=== PATIENT | female | born 1985 | race Caucasian/White ===

== ENCOUNTER 2022-10-04 11:30 | Emergency (ER) | payer OTHER, SELFPAY ==
--- NOTE | ~2022-10-04 | XR_ITS ---
EXAMINATION: XR CHEST CLINICAL INFORMATION: Shortness of breath COMPARISON: Previous chest x-ray October 2019 TECHNIQUE: Frontal view of the chest was obtained. FINDINGS: No significant abnormality is noted involving the heart, lungs, mediastinum, bony thorax or soft tissues. XR/XR chest 1V IMPRESSION: Unremarkable examination.
[2022-10-04 11:32] VITALS: BP 159/95; PULSE 116; RESP 22; TEMP 36.6; O2SAT 95; BMI 27.4
[2022-10-04 11:42] VITALS: BP 129/92; PULSE 113; RESP 20; TEMP 37.1; O2SAT 92
--- NOTE | 2022-10-04 11:45 | PC.NURSE ---
PT A&Ox4, c/o increasing SOB since yesterday. PT wheezing to occultation, sat 94% on RA. RR 20.
[2022-10-04 11:55] LABS: MANUAL DIFF FLAG NO
[2022-10-04 12:03] LABS: Basophils Absolute Auto 0.1 X10*3/uL (0.0-0.2); Basophils Percent Auto 0.8 % (0-2); Eosinophils Absolute Auto 0.4 X10*3/uL (0.0-0.4); Eosinophils Percent Auto 4.7 % (0-4); Hematocrit 42.9 % (37.0-47.0); Hemoglobin 14.8 g/dl (12.0-16.0); Imm Gran Abs Auto 0.04 X10*3/uL (0.00-0.03); Imm Gran Pct Auto 0.5 % (0.0-0.4); Lymphocytes Absolute Auto 1.5 X10*3/uL (1.2-4.9); Lymphocytes Percent Auto 16.9 % (20-40); Mean Corpuscular HGB Conc 34.5 g/dl (31.0-35.0); Mean Corpuscular Hemoglobin 30.8 pg (27.0-33.0); Mean Corpuscular Volume 89.2 fL (80.0-98.0); Mean Platelet Volume 10.2 fL (9.4-12.3); Monocytes Absolute Auto 0.8 X10*3/uL (0.1-1.2); Monocytes Percent Auto 8.5 % (2-11); Neutrophils Absolute Auto 6.1 x10*3/uL (2.0-8.3); Neutrophils Percent Auto 68.6 % (45-73); Platelet Count 342 X10*3/uL (160-400); Red Blood Count 4.81 X10*6/uL (4.20-5.50); Red Cell Distribution Width 12.2 % (11.0-16.0); White Blood Count 8.9 X10*3/uL (4.8-10.8)
--- NOTE | 2022-10-04 12:10 | ED.SOB ---
HPI - SOB/Dyspnea General Chief Complaint: Dyspnea Stated Complaint: Difficulty breathing/Chest pain Time Seen by Provider: 10/04/22 12:08 Related Data Previous Rx's Medication Instructions Recorded albuterol sulfate 2.5 mg/3 mL 2.5 mg (3 mL) inhalation Q4H PRN 10/04/22 (0.083 %) solution for nebulization shortness of breath or wheezing #180 mL albuterol sulfate 90 mcg/actuation 2 puff inhalation Q4-6H PRN 10/04/22 aerosol inhaler shortness of breath #6.7 grams inhalational spacing device #1 ea 10/04/22 (Aerochamber Plus Z Stat spacer) prednisone 20 mg tablet 40 mg PO DAILY #14 tabs 10/04/22 Allergies Allergy/AdvReac Type Severity Reaction Status Date / Time No Known Allergies Allergy Unverified 07/30/20 16:51 [No Known Allergies*] PMFSH Social History Social History Advance Directives: No Advance Directives Information Provided: No Physical Exam Vital Signs: Vital Signs: Last Vital Signs Temp 98.8 F 10/04/22 11:42 Pulse 105 H 10/04/22 13:47 Resp 19 10/04/22 13:47 BP 121/75 10/04/22 13:47 Pulse Ox 97 10/04/22 13:47 O2 Del Method 10/04/22 13:47 BMI result Body Mass Index 27.4 Course Reevaluation(s) Reevaluation #1: Patient states breathing is improved, but still slightly wheezy. Will give another neb and re-evaluate. Time: 13:39 Reevaluation #2: Patient is feeling much improved. Would like to go home at this time. Time: 14:52 Medications Administered Discontinued Medications Generic Name Dose Route Start Last Admin Trade Name Freq PRN Reason Stop Dose Admin Albuterol Sulfate 2.5 mg/ 5 mg 10/04/22 13:38 10/04/22 13:47 Albuterol Sulfate 2.5 mg INHALE 10/04/22 13:39 5 mg ONCE ONE Administration Albuterol/Ipratropium 3 ml 10/04/22 12:17 10/04/22 12:58 Albuterol/Iprat 2.5/0.5mg 3 Ml Ampul.Neb INHALE 10/04/22 12:18 3 ml ONCE ONE Administration Methylprednisolone Sodium Succinate 125 mg 10/04/22 12:30 10/04/22 12:32 Methylprednisolone Sod Succ 125 Mg/2 Ml Vial IVPUSH 10/04/22 12:31 125 mg ONCE ONE Administration MDM - SOB/Dyspnea MDM Narrative Medical decision making narrative: 37 yo with hx of asthma presents with shortness of breath. XRay and labs unremarkable for abnormalities. Rec'd several nebulizer treatments with improvement. Will d/c home on steroids with prescriptions. Differential Diagnosis Differential diagnosis: Likely acute exacerbation of chronic obstructive airways disease, pneumonia and asthma with exacerbation Medical Records Attestation: I reviewed the patient's medical records. Lab Data Attestation: I reviewed the patient's lab results. Result diagrams: 10/04/22 11:50 10/04/22 11:50 Labs: Lab Results 10/04/22 10/04/22 10/04/22 Range/Units 11:50 11:50 11:50 WBC 8.9 (4.8-10.8) X10*3/uL RBC 4.81 (4.20-5.50) X10*6/uL Hgb 14.8 (12.0-16.0) g/dl Hct 42.9 (37.0-47.0) % MCV 89.2 (80.0-98.0) fL MCH 30.8 (27.0-33.0) pg MCHC 34.5 (31.0-35.0) g/dl RDW 12.2 (11.0-16.0) % Plt Count 342 (160-400) X10*3/uL MPV 10.2 (9.4-12.3) fL Immature Gran % (Auto) 0.5 H (0.0-0.4) % Neut % (Auto) 68.6 (45-73) % Lymph % (Auto) 16.9 L (20-40) % [place] % (Auto) 8.5 (2-11) % Eos % (Auto) 4.7 H (0-4) % Baso % (Auto) 0.8 (0-2) % Lymph # (Auto) 1.5 (1.2-4.9) X10*3/uL [place] # (Auto) 0.8 (0.1-1.2) X10*3/uL Eos # (Auto) 0.4 (0.0-0.4) X10*3/uL Baso # (Auto) 0.1 (0.0-0.2) X10*3/uL Abs Immat Gran (auto) 0.04 H (0.00-0.03) X10*3/uL Absolute Neuts (auto) 6.1 (2.0-8.3) x10*3/uL Absolute Nucleated RBC 0.000 (0.0-0.012) X10*3/uL Nucleated RBC % (auto) 0.0 (0.0-0.2) /100WBC Sodium 140 (135-145) mmol/L Potassium 4.7 (3.3-5.1) mmol/L Chloride 106 (96-108) mmol/L Carbon Dioxide 23 (22-29) mmol/L Anion Gap 16 (12-20) BUN 10 (9-16) mg/dL Creatinine 0.78 (0.5-1.4) mg/dL Estim Creat Clear Calc 95.5 Estimated GFR > 60 Random Glucose 110 (60-115) mg/dL Calcium 9.8 (8.4-10.2) mg/dL Troponin I High Sens < 3.5 (<3.5-17.0) ng/L B-Natriuretic Peptide (<100) pg/mL 10/04/22 Range/Units 11:50 WBC (4.8-10.8) X10*3/uL RBC (4.20-5.50) X10*6/uL Hgb (12.0-16.0) g/dl Hct (37.0-47.0) % MCV (80.0-98.0) fL MCH (27.0-33.0) pg MCHC (31.0-35.0) g/dl RDW (11.0-16.0) % Plt Count (160-400) X10*3/uL MPV (9.4-12.3) fL Immature Gran % (Auto) (0.0-0.4) % Neut % (Auto) (45-73) % Lymph % (Auto) (20-40) % [place] % (Auto) (2-11) % Eos % (Auto) (0-4) % Baso % (Auto) (0-2) % Lymph # (Auto) (1.2-4.9) X10*3/uL [place] # (Auto) (0.1-1.2) X10*3/uL Eos # (Auto) (0.0-0.4) X10*3/uL Baso # (Auto) (0.0-0.2) X10*3/uL Abs Immat Gran (auto) (0.00-0.03) X10*3/uL Absolute Neuts (auto) (2.0-8.3) x10*3/uL Absolute Nucleated RBC (0.0-0.012) X10*3/uL Nucleated RBC % (auto) (0.0-0.2) /100WBC Sodium (135-145) mmol/L Potassium (3.3-5.1) mmol/L Chloride (96-108) mmol/L Carbon Dioxide (22-29) mmol/L Anion Gap (12-20) BUN (9-16) mg/dL Creatinine (0.5-1.4) mg/dL Estim Creat Clear Calc Estimated GFR Random Glucose (60-115) mg/dL Calcium (8.4-10.2) mg/dL Troponin I High Sens (<3.5-17.0) ng/L B-Natriuretic Peptide 11 (<100) pg/mL Imaging Data Chest x-ray: Attestation: I personally reviewed and interpreted this imaging study as follows: My impression: No acute pulmonary disease. No pneumothorax. No pneumonia. Discharge Plan Discharge Clinical Impression: Asthma with exacerbation Patient Disposition: Home, Self-Care Instructions: Asthma (ED), How to Use a Metered-Dose Inhaler and a Spacer (ED) Prescriptions: New albuterol sulfate 90 mcg/actuation HFA aerosol inhaler 2 puff inhalation Q4-6H PRN (Reason: shortness of breath) Qty: 6.7 0RF albuterol sulfate 2.5 mg /3 mL (0.083 %) solution for nebulization 2.5 mg inhalation Q4H PRN (Reason: shortness of breath or wheezing) Qty: 180 0RF prednisone 20 mg tablet 40 mg PO DAILY Qty: 14 0RF (DME) Aerochamber Plus Z Stat Spacer See Rx Instructions .Route Qty: 1 0RF Rx Instructions: As directed Referrals: Aaron Mercer MD [Primary Care Provider] - 1 week (as needed)
[2022-10-04 12:17] LABS: Anion Gap 16 (12-20); Blood Urea Nitrogen 10 mg/dL (9-16); Calcium 9.8 mg/dL (8.4-10.2); Carbon Dioxide 23 mmol/L (22-29); Chloride 106 mmol/L (96-108); Creatinine Clr Calc Pharmacy 95.5; Estimated Glomerular Filt Rate > 60; Glucose Random 110 mg/dL (60-115); Potassium 4.7 mmol/L (3.3-5.1); Sodium 140 mmol/L (135-145)
[2022-10-04 12:25] LABS: B Type Natriuretic Peptide 11 pg/mL (<100); Troponin-I High Sensitivity < 3.5 ng/L (<3.5-17.0)
--- OUTSIDE RECORDS SUMMARY | 2022-10-04 12:25 | XMS_ITS | Continuity of Care Document ---
:1985 Author Organization [facility] Adult Address [address] [place] [address]- Care Team Providers Name Role Phone Aaron Mercer MD Primary Care Physician [place] [facility] [place]19 [facility] [address] [place] [address]- [facility] Encounter Diagnosis Cough (Discharge Diagnosis) - 11/28/19 Attending Physician: Not on Staff, Attending MD Allergies, Adverse Reactions, Alerts No Known Medication Allergies Immunizations Given and Recorded Vaccine Date Status Refusal Reason tetanus-diphtheria toxoids (Td) 11/28/19 Given Medications Azithromycin 5 Day Dose Pack 250 mg oral tablet 1 pack/packet, By Mouth, Once, as directed on package labeling, # 6 tablet, 0 Refills, Soft Stop, 11/28/19 10:28:00 EST, Tablet, [facility] - [address], 162, cm, 11/28/19 10:01:00 EST, Height, 70.1, kg, 01/12/18 18:04:00 EST, Dry Weight Start Date: 11/28/19 Status: Orderedlevothyroxine 0.025 mg oral tablet 1 tablet = 25 mcg, By Mouth, Daily, # 30 tablet, 1 Refills, Maintenance, 11/29/19 10:56:00 EST, Tablet, [facility] - [address], 162, cm, 11/28/19 10:01:00 EST, Height, 70.1, kg, 01/12/18 18:04:00 EST, Dry Weight Start Date: 11/29/19 Status: OrderedProAir HFA 90 mcg/inh inhalation aerosol with adapter 2, puffs, Inhalation, Every 6 hours, PRN, # 8.5 Gm, Refills 0, Tot. Refills 0, Maintenance, 11/28/2009:18:00 EST, Aerosol, Route to Pharmacy Electronically, [id number], [facility] - [address],162, cm, 11/28/19 10:01:00 EST, Height, 70.1, kg,... Start Date: 11/28/19 Status: OrderedSingulair 10 mg oral tablet 10 mg, 1, tablet, By Mouth, Daily in PM, # 30 tablet, Refills 6, Tot. Refills 6, Maintenance, 11/28/19 10:18:00 EST, Route to Pharmacy Electronically, [facility] - [address], 162, cm, 11/28/19 10:01:00 EST, Height, 70.1, kg, 01/12/18 18:04:00 EST, D... Start Date: 11/28/19 Status: Ordered Problem List Condition Effective Dates Status Health Status Informant Asthma(Confirmed) Active BMI 28.0-28.9,adult(Confirmed) Active GERD (gastroesophageal reflux Active disease)(Confirmed) History of anxiety(Confirmed) Active History of depression(Confirmed) Active Hypothyroid(Confirmed) Active Vitamin D deficiency(Confirmed) Active Diagnosis Diagnosis Type Effective Dates Health Status Clinical Serv ice Informant Cough Discharge 11/28/19 Diagnosis Vital Signs Most recent to oldest [Reference Range]: 1 Height 162 cm (11/28/19 10:01 AM) Weight 74.6 kg (11/28/19 10:01 AM) Oxygen Saturation [94-100 %] 97 % (11/28/19 10:01 AM) Pulse Rate [55-90 bpm] 83 bpm (11/28/19 10:01 AM) Body Mass Index [18.5-24.99] 28.43 *H* (11/28/19 10:01 AM) Blood Pressure [90-138/55-84 mm Hg] 124/84 mm Hg (11/28/19 10:01 AM) Temperature [96.8-100.4 DegF] 98.1 DegF (11/28/19 10:01 AM) Blood pressure sites Arm, left (11/28/19 10:01 AM) Temperature Route Oral (11/28/19 10:01 AM) Social History Social History Type Response Smoking Status Former smoker, quit more jesus n 30 days ago; Other: Quit 3 months ago; entered on: 11/28/19 Sex
--- OUTSIDE RECORDS SUMMARY | 2022-10-04 12:25 | XMS_ITS | Continuity of Care Document ---
:1985 Author Organization [facility] Adult Address [address] [place] [address]- Care Team Providers Name Role Phone Sylvie OROSCO, Aaron Lopez Primary Care Physician Encounter [facility] [place] Date(s): 08/17/20 - 09/16/20 [facility] [address] [place] [id number]- [facility] Allergies, Adverse Reactions, Alerts No Known Medication Allergies Substance Reaction Severity Status Glutens Active Milk Products Active Immunizations Given and Recorded Vaccine Date Status Refusal Reason tetanus-diphtheria toxoids (Td) 11/28/19 Given Medications AirDuo RespiClick 113 mcg-14 mcg/inh inhalation powder 1, inhalation, Inhalation, 2 times a day, rinse mouth and throat after use, # 1 each, Refills 3, Tot. Refills 3, Maintenance, 07/03/20 16:40:00 EDT, Powder, Route to Pharmacy Electronically, [id number], [facility] #[id number], 162, cm, 03/13... Start Date: 07/03/20 Status: Orderedalbuterol 0.083% inhalation solution 3 mL = 2.5 mg, Inhalation, Every 6 hours, PRN for wheezing, # 25 each, 2 Refills, Maintenance, 06/25/20 15:43:00 EDT, Solution, [facility] #[id number], 162, cm, 03/30/20 9:29:00 EDT, Height Start Date: 06/25/20 Status: OrderedFlonase 50 mcg/inh nasal spray 1 sprays, Nares, Both, 2 times a day, # 16 Gm, 0 Refills, Maintenance, 03/30/20 9:48:00 EDT, [place], [facility] #[id number], 1 sprays Nares, Both 2 times a day, 162, cm, 03/30/20 9:29:00 EDT, Height Start Date: 03/30/20 Status: OrderedFlovent HFA 220 mcg/inh inhalation aerosol 2 puffs, Inhalation, 2 times a day, # 12 Gm, 5 Refills, Maintenance, 08/20/20 10:59:00 EDT, Aerosol,[facility] #[id number], 162, cm, 03/30/20 9:29:00 EDT, Height Start Date: 08/20/20 Status: Orderedlevothyroxine 0.05 mg oral tablet 1 tablet = 50 mcg, By Mouth, Daily, DOSAGE INCREASE, # 30 tablet, 1 Refills, Maintenance, 02/27/20 9:46:00 EDT, Tablet, [facility] #[id number], 162, cm, 11/28/19 10:01:00 EST, Height Start Date: 02/27/20 Status: OrderedpredniSONE 20 mg oral tablet See Instructions, 2 tablets daily for 7 days then 1 tablet daily for 7 days, # 21 tablet, 0 Refills,Maintenance, 06/25/20 15:39:00 EDT, Tablet, [facility] #[id number], 162, cm, 03/30/20 9:29:00 EDT, Height Start Date: 06/25/20 Status: OrderedProAir HFA 90 mcg/inh inhalation aerosol with adapter 2, puffs, Inhalation, Every 6 hours, PRN, # 8.5 Gm, Refills 5, Tot. Refills 5, Maintenance, 06/25/2015:43:00 EDT, Aerosol, Route to Pharmacy Electronically, [id number], [facility] #[id number], 162, cm, 03/30/20 9:29:00 EDT, Height, Dry Weight Start Date: 06/25/20 Status: OrderedSingulair 10 mg oral tablet 10 mg, 1, tablet, By Mouth, Daily in PM, # 30 tablet, Refills 6, Tot. Refills 6, Maintenance, 11/28/19 10:18:00 EST, Route to Pharmacy Electronically, [facility] - [address], 162, cm, 11/28/19 10:01:00 EST, Height, 70.1, kg, 01/12/18 18:04:00 EST, D... Start Date: 11/28/19 Status: Ordered Problem List Condition Effective Dates Status Health Status Informant Asthma(Confirmed) Active BMI 28.0-28.9,adult(Confirmed) Active GERD (gastroesophageal reflux Active disease)(Confirmed) History of anxiety(Confirmed) Active History of depression(Confirmed) Active Hypothyroid(Confirmed) Active Vitamin D deficiency(Confirmed) Active Social History Social History Type Response Smoking Status Former smoker, quit more jesus n 30 days ago; Other: Quit 3 months ago; entered on: 11/28/19 Sex
--- OUTSIDE RECORDS SUMMARY | 2022-10-04 12:25 | XMS_ITS | Continuity of Care Document ---
:1985 Author Organization [facility] Adult Address [address] [place] [address]- Care Team Providers Name Role Phone Sylvie OROSCO, Aaron Lopez Primary Care Physician [place] [facility] [place] 11/26/20 - 12/26/20 [facility] [address] [place] [address]- Allergies, Adverse Reactions, Alerts No Known Medication Allergies Substance Reaction Severity Status Glutens Active Milk Products Active Immunizations Given and Recorded Vaccine Date Status Refusal Reason tetanus-diphtheria toxoids (Td) 11/28/19 Given Medications albuterol 0.083% inhalation solution 3 mL = 2.5 mg, Inhalation, Every 6 hours, PRN for wheezing, # 100 each, 2 Refills, Maintenance, 11/25/20 13:41:00 EST, Solution, [id number], 162, cm, 10/20/20 8:08:00 EST, Height Start Date: 11/25/20 Status: Orderedfluticasone-salmeterol 232 mcg-14 mcg/inh inhalation powder 1 inhalation, Inhalation, 2 times a day, rinse mouth and throat after use, # 1 each, 3 Refills, Maintenance, 11/25/20 13:41:00 EST, Powder, [id number], Partial fill upon patient request if the prescription is for a schedule II opioid drug., 1... Start Date: 11/25/20 Status: Orderedlevothyroxine 0.025 mg oral tablet 1 tablet, By Mouth, Daily, PLEASE SCHEDULE A FOLLOW UP VISIT FOR FURTHER REFILLS., # 30 tablet, 0 Refills, Maintenance, 11/25/20 13:41:00 EST, [id number], 162, cm, 10/20/20 8:08:00 EST, Height Start Date: 11/25/20 Status: OrderedSingulair 10 mg oral tablet 10 mg, 1, tablet, By Mouth, Daily in PM, # 30 tablet, Refills 6, Tot. Refills 6, Maintenance, 11/25/20 13:41:00 EST, [id number], cm, 10/20/20 8:08:00 EST,Height Start Date: 11/25/20 Status: OrderedVentolin HFA 108 mcg/inh inhalation aerosol with adapter 2 puffs, Inhalation, 4 times a day, PRN for wheezing, replaces pro air, # 18 Gm, 3 Refills, Maintenance, 11/26/20 9:42:00 EST, Aerosol, [facility] #[id number], Partial fill upon patient request if the prescription is for a schedule II opioid drug. replace... Start Date: 11/26/20 Status: Ordered Problem List Condition Effective Dates [...]
[2022-10-04] MEDS: methylPREDNISolone Sod Succ 125 MG/2 ML VIAL IVPUSH (12:32)
--- NOTE | 2022-10-04 12:50 | PC.NURSE ---
respiratory called for updraft
[2022-10-04] MEDS: Albuterol/Iprat 2.5/0.5MG 3 ML AMPUL.NEB INHALE (12:58)
[2022-10-04 12:59] VITALS: PULSE 112; RESP 18; O2SAT 94
[2022-10-04 13:47] VITALS: BP 121/75; PULSE 105; PULSE 112; RESP 19; RESP 20; O2SAT 97; O2SAT 98
[2022-10-04] MEDS: Albuterol Sulfate 2.5 MG, Albuterol Sulfate (0.083%) 2.5 MG 5 MG INHALE (13:47)
--- NOTE | 2022-10-04 14:21 | PC.NURSE ---
pt had second updraft, LEX and LLL in/ex wheezing heard, diminished throughout. pt given po with provider ok.
== END 2022-10-04 15:12 | disposition home or self-care (01) ==
PROVIDERS: Emergency Provider Emergency Medicine; PCP Internal Medicine
DX: J45.901 Unspecified asthma with (acute) exacerbation (principal); R06.02 Shortness of breath; Z79.899 Other long term (current) drug therapy
CPT/HCPCS: 36415; 71045; 80048; 83880; 84484; 85025; 94640; 96374; 99284; J2930

== ENCOUNTER 2024-09-16 17:09 | Emergency (ER) | payer OTHER, SELFPAY ==
--- NOTE | ~2024-09-16 | XR_ITS ---
EXAMINATION: XR CHEST CLINICAL INFORMATION: Shortness of breath COMPARISON: 10/04/2022 TECHNIQUE: Frontal view of the chest was obtained. FINDINGS: No significant abnormality is noted involving the heart, lungs, mediastinum, bony thorax or soft tissues. XR/XR chest 1V IMPRESSION: Unremarkable examination. Electronically signed by: Anayeli Boo MD 09/16/2024 06:29 PM [facility]
[2024-09-16 17:18] VITALS: BP 162/97; PULSE 116; RESP 24; TEMP 36.4; O2SAT 86; BMI 25.7
[2024-09-16 17:24] VITALS: PULSE 116; RESP 25; O2SAT 95
--- NOTE | 2024-09-16 17:24 | ED_ITS ---
HPI - Asthma General Chief Complaint: Asthma Stated Complaint: Asthma Attack Time Seen by Provider: 09/16/24 17:21 Source: patient Mode of arrival: ambulatory Limitations: no limitations History of Present Illness ED Provider: Dr. Wendy Vazquez HPI Narrative: Patient comes to the emergency room complaining of 2-3 days of shortness of breath/asthma exacerbation. Patient states that couple of days ago, she started coughing. Patient denies fever chills. Patient has been using her albuterol both pump and nebulization treatments at home without any significant response. Patient denies any sick contacts. Related Data Previous Rx's ?Medication ?Instructions ?Recorded albuterol sulfate 2.5 mg/3 mL 2.5 mg (3 mL) inhalation Q4H PRN 10/04/22 (0.083 %) solution for nebulization shortness of breath or wheezing #180 mL albuterol sulfate 90 mcg/actuation 2 puff inhalation Q4-6H PRN 10/04/22 aerosol inhaler shortness of breath #6.7 grams inhalational spacing device #1 ea 10/04/22 (Aerochamber Plus Z Stat spacer) prednisone 20 mg tablet 40 mg (2 x 20 mg) PO DAILY #14 tabs 10/04/22 albuterol sulfate 2.5 mg/3 mL 2.5 mg (3 mL) inhalation Q4-6H PRN 09/16/24 (0.083 %) solution for nebulization shortness of breath or wheezing #75 mL albuterol sulfate 90 mcg/actuation 2 puff inhalation Q4-6H PRN 09/16/24 aerosol inhaler shortness of breath or wheezing #8.5 grams prednisone 50 mg tablet 50 mg PO DAILY #4 tabs 09/16/24 Allergies Allergy/AdvReac Type Severity Reaction Status Date / Time No Known Allergies Allergy Verified 09/16/24 17:19 [No Known Allergies*] Review of Systems 2 Review of Systems: Constitutional : No Weight loss, No Fever, No Chills, No Night Sweats, No Fatigue, No Malaise ENT/Mouth : No Hearing loss, No Ear Pain, No Nasal Congestion, No Sinus Pain, No Hoarseness, No sore throat, No Rhinorrhea, No Swallowing Difficulty Eyes: No Eye Pain, No Swelling, No Redness, No Foreign Body, No Discharge, No Vision Changes Cardiovascular : No Chest Pain, No SOB, No Dyspnea on Exertion, No Orthopnea, No Edema, No Palpitations Respiratory : Complaining of shortness of breath, dry cough and wheezing Gastrointestinal : No Nausea, No Vomiting, No Diarrhea, No Constipation, No abdominal Pain, No Hematochezia, No Melena Genitourinary : no irregular bleeding, No Dysuria, No Urinary Frequency, No Hematuria, No Urinary Incontinence, No Urgency, No Flank Pain, No Urinary Flow Changes, No Hesitancy Musculoskeletal : No joint pain, No Myalgias, No Joint Swelling Skin : No Skin Lesions, No rash Neuro : No Weakness, No Numbness, No Paresthesias, No Loss of Consciousness, No Dizziness, No Headache Psych : No Anxiety/Panic, No Depression, No SI/HI/AH/VH, No Social Issues, Heme/Lymph: No Bruising, No Bleeding,No Lymphadenopathy Endocrine : No Polyuria, No Polydipsia, No Temperature Intolerance PMFSH Past Medical History Medical History Asthma Social History Social History Advance Directives: No Advance Directives Information Provided: No Physical Exam 2 Vital Signs: Vital Signs: Last Vital Signs Temp 97.6 F 09/16/24 18:52 Pulse 108 H 09/16/24 18:52 Resp 16 09/16/24 18:52 BP 124/81 09/16/24 18:52 Pulse Ox 96 09/16/24 18:52 O2 Del Method Room Air 09/16/24 18:52 BMI result Body Mass Index 25.7 Const: Other: Appearance: Alert. Oriented X3. No acute distress. Eyes: Pupils equal, round and reactive to light. ENT: Pharynx normal. Neck: Normal inspection. Neck supple. No lymph nodes noted. No crepitus CVS: Normal heart rate and rhythm. Pulses normal. Normal S1 and S2 Respiratory: On arrival, oxygen saturation 86% on room air, now saturating 93% on 4 L, bilateral wheezing, moderate air movement Abdomen: Soft and nontender. No rigidity. No distention. Skin: Skin warm and dry. Normal skin color. Normal skin turgor. Extremities: No lower extremity edema. No Lacerations. No Rash Neuro: Oriented X 3. No motor deficit. No sensory deficit. Moving all extremities. No slurred speech. CN 2 through 12 grossly intact Psych: calm, cooperative, normal affect Course Course Course Narrative: Patient receiving nebulization treatment, also receiving IV Solu-Medrol and magnesium. -patient refused COVID/influenza testing -basic labs and x-rays pending Medications Administered Generic Name Dose Route Start Last Admin Trade Name Denys PRN Reason Stop Dose Admin Magnesium Sulfate 2 gm in 50 mls @ 25 mls/hr 09/16/24 17:22 09/16/24 17:45 Magnesium Sulfate/H2o IV 09/16/24 19:21 25 mls/hr ONCE ONE Administration Discontinued Medications Generic Name Dose Route Start Last Admin Trade Name Freq PRN Reason Stop Dose Admin Albuterol Sulfate 5 mg/ 0 mg 09/16/24 17:24 09/16/24 17:27 Albuterol/Ipratropium 3 ml INHALE 09/16/24 17:25 1 each ONCE ONE Administration Methylprednisolone Sodium Succinate 125 mg 09/16/24 17:22 09/16/24 17:45 Methylprednisolone Sod Succ 125 Mg/2 Ml Vial IVPUSH 09/16/24 17:23 125 mg ONCE ONE Administration Medical Decision Making Medical Decision Making [facility] Narrative: My interpretation of labs, patient's white blood cell count 19.6, she has been taking prednisone for 2 days. No significant chemistry abnormality, patient refused serology testing for COVID flu RSV -x-ray unremarkable, no signs of pneumonia/infiltrates -after the above-mentioned treatment, patient feeling much better. Patient ambulated around the ED on room air, oxygen saturation 94%. Patient states that she feels much better, requesting a refill of her meds Differential Diagnosis Differential Diagnoses: The differential diagnosis associated with the presentation includes (Viral URI, pneumonia, asthma exacerbation) Admission/Observation Consideration of admission/observation: Escalation of care including admission/observation considered (Given patient's low O2 when she arrived to the ED, observation/admission was considered) Lab Data [facility] Lab Attestation statement: I reviewed the patient's lab results. 09/16/24 17:38 09/16/24 17:38 Labs: Lab Results 09/16/24 Range/Units 17:38 WBC 19.6 H (4.8-10.8) X10*3/uL RBC 4.72 (4.20-5.50) X10*6/uL Hgb 14.9 (12.0-16.0) g/dl Hct 41.2 (37.0-47.0) % MCV 87.3 (80.0-98.0) fL MCH 31.6 (27.0-33.0) pg MCHC 36.2 H (31.0-35.0) g/dl RDW 11.9 (11.0-16.0) % Plt Count 346 (160-400) X10*3/uL MPV 9.9 (9.4-12.3) fL Immature Gran % (Auto) 0.6 H (0.0-0.4) % Neut % (Auto) 90.7 H (45-73) % Lymph % (Auto) 3.8 L (20-40) % [place] % (Auto) 4.7 (2-11) % Eos % (Auto) 0.1 (0-4) % Baso % (Auto) 0.1 (0-2) % Lymph # (Auto) 0.7 L (1.2-4.9) X10*3/uL [place] # (Auto) 0.9 (0.1-1.2) X10*3/uL Eos # (Auto) 0.0 (0.0-0.4) X10*3/uL Baso # (Auto) 0.0 (0.0-0.2) X10*3/uL Abs Immat Gran (auto) 0.12 H (0.00-0.03) X10*3/uL Absolute Neuts (auto) 17.8 H (2.0-8.3) x10*3/uL Absolute Nucleated RBC 0.000 (0.0-0.012) X10*3/uL Nucleated RBC % (auto) 0.0 (0.0-0.2) /100WBC Smear Tech's Comments VERIFIED Hold Blue Top SEE NOTE Sodium 138 (135-145) mmol/L Potassium 3.6 (3.3-5.1) mmol/L Chloride 103 (96-108) mmol/L Carbon Dioxide 20 L (22-29) mmol/L Anion Gap 19 (12-20) BUN 9 (9-16) mg/dL Creatinine 0.85 (0.5-1.4) mg/dL Estim Creat Clear Calc 83.3 Estimated GFR > 60 Random Glucose 121 H (60-115) mg/dL Calcium 10.3 H (8.4-10.2) mg/dL Independent Interpretation I performed an independent interpretation of an: Plain X-Ray Radiology Impression Discussion of test interpretation with radiology: I have reviewed the radiologist's reading. Radiologist Impression: No significant abnormality is noted involving the heart, lungs, mediastinum, bony thorax or soft tissues. XR/XR chest 1V IMPRESSION: Unremarkable examination. Critical Care Time Critical Care Time Critical Care Time: Yes Total Critical Care Time: 45 Attestation: I have personally provided critical care time. Time includes review of lab data, radiology results, discussion with consultants, and monitoring for potential decompensation. Intervention performed as documented. Discharge Plan Discharge Clinical Impression: Asthma with acute exacerbation Patient Disposition: Home, Self-Care Instructions: Asthma (ED) Additional Instructions: Please follow-up with your primary care physician tomorrow. If you have any worsening or new symptoms, please return to the emergency room or call 911 Prescriptions: New albuterol sulfate 90 mcg/actuation HFA aerosol inhaler 2 puff inhalation Q4-6H PRN (Reason: shortness of breath or wheezing) Qty: 8.5 1RF albuterol sulfate 2.5 mg /3 mL (0.083 %) solution for nebulization 2.5 mg inhalation Q4-6H PRN (Reason: shortness of breath or wheezing) Qty: 75 0RF prednisone 50 mg tablet 50 mg PO DAILY Qty: 4 0RF No Action albuterol sulfate 90 mcg/actuation HFA aerosol inhaler 2 puff inhalation Q4-6H PRN (Reason: shortness of breath) Qty: 6.7 0RF albuterol sulfate 2.5 mg /3 mL (0.083 %) solution for nebulization 2.5 mg inhalation Q4H PRN (Reason: shortness of breath or wheezing) Qty: 180 0RF prednisone 20 mg tablet 40 mg PO DAILY Qty: 14 0RF (DME) Aerochamber Plus Z Stat Spacer See Rx Instructions .Route Qty: 1 0RF Rx Instructions: As directed Print Language: Kenyan
[2024-09-16] MEDS: Albuterol Sulfate 5 MG, Albuterol/Iprat 2.5/0.5MG 3 ML 3 ML INHALE (17:27)
[2024-09-16 17:45] LABS: Basophils Percent Auto 0.1 % (0-2); Eosinophils Percent Auto 0.1 % (0-4); Hematocrit 41.2 % (37.0-47.0); Hemoglobin 14.9 g/dl (12.0-16.0); Imm Gran Abs Auto 0.12 X10*3/uL (0.00-0.03); Imm Gran Pct Auto 0.6 % (0.0-0.4); Lymphocytes Absolute Auto 0.7 X10*3/uL (1.2-4.9); Lymphocytes Percent Auto 3.8 % (20-40); MANUAL DIFF FLAG SCAN; Mean Corpuscular HGB Conc 36.2 g/dl (31.0-35.0); Mean Corpuscular Hemoglobin 31.6 pg (27.0-33.0); Mean Corpuscular Volume 87.3 fL (80.0-98.0); Mean Platelet Volume 9.9 fL (9.4-12.3); Monocytes Absolute Auto 0.9 X10*3/uL (0.1-1.2); Monocytes Percent Auto 4.7 % (2-11); Neutrophils Absolute Auto 17.8 x10*3/uL (2.0-8.3); Neutrophils Percent Auto 90.7 % (45-73); Platelet Count 346 X10*3/uL (160-400); Red Blood Count 4.72 X10*6/uL (4.20-5.50); Red Cell Distribution Width 11.9 % (11.0-16.0); SCAN SMEAR FLAG 1; White Blood Count 19.6 X10*3/uL (4.8-10.8)
[2024-09-16] MEDS: methylPREDNISolone Sod Succ 125 MG/2 ML VIAL IVPUSH (17:45)
[2024-09-16] MEDS: Magnesium Sulfate/H2O 2 GM/50 ML PIGGYBACK IV (17:45)
[2024-09-16 18:08] LABS: SLIDE REVIEW VERIFIED
--- NOTE | 2024-09-16 18:08 | PC.NURSE ---
respiratory at bedside with updraft. IV established, placed on brick offbearer. labs obtained and sent. medicated per the JAN. patient now 93-96% on room air.
[2024-09-16 18:09] LABS: Anion Gap 19 (12-20); Blood Urea Nitrogen 9 mg/dL (9-16); Calcium 10.3 mg/dL (8.4-10.2); Carbon Dioxide 20 mmol/L (22-29); Chloride 103 mmol/L (96-108); Creatinine Clr Calc Pharmacy 83.3; Estimated Glomerular Filt Rate > 60; Glucose Random 121 mg/dL (60-115); Potassium 3.6 mmol/L (3.3-5.1); Sodium 138 mmol/L (135-145)
[2024-09-16 18:52] VITALS: BP 124/81; PULSE 108; RESP 16; TEMP 36.4; O2SAT 96
--- NOTE | 2024-09-16 18:52 | PC.NURSE ---
ambulated to the bathroom independently. patient back in bed, denies shortness of breath currently. oxygen after ambulating 94% room air.
[2024-09-16 19:23] VITALS: BP 124/81; PULSE 108; RESP 16; TEMP 36.4; O2SAT 96
== END 2024-09-16 19:24 | disposition home or self-care (01) ==
PROVIDERS: Emergency Provider Emergency Medicine
DX: J45.901 Unspecified asthma with (acute) exacerbation (principal); R06.02 Shortness of breath; Z79.899 Other long term (current) drug therapy
CPT/HCPCS: 36415; 71045; 80048; 85025; 94640; 96374; 96375; 99284; 99285; J2919; J3475

== ENCOUNTER 2024-09-18 10:34 | Emergency (ER) | payer OTHER, SELFPAY ==
--- NOTE | ~2024-09-18 | XR_ITS ---
EXAMINATION: XR CHEST CLINICAL INFORMATION: Shortness of breath COMPARISON: X-ray dated September 16, 2024 TECHNIQUE: 2 views of the chest were obtained. FINDINGS: No consolidation, pleural effusion or pneumothorax. Cardiomediastinal silhouette is normal in size. S-shaped curvature of the thoracic spine. XR/XR chest 2V IMPRESSION: No acute airspace disease. Electronically signed by: Virgilio Rodrigues MD 09/18/2024 12:02 PM [email or web address]
--- NOTE | 2024-09-18 10:36 | ECG_ITS ---
Test Reason : chest pain Blood Pressure : / mmHG Vent. Rate : 091 BPM Atrial Rate : 091 BPM P-R Int : 150 ms QRS Dur : 074 ms QT Int : 338 ms P-R-T Axes : 075 070 065 degrees QTc Int : 415 ms Normal sinus rhythm Normal ECG When compared with ECG of 09-AUG-2018 18:21, No significant change was found Referred By: Generic ED Physician Electronically Signed By:ELISA DONG MD
[2024-09-18 10:45] VITALS: BP 140/93; PULSE 102; RESP 24; TEMP 36.2; O2SAT 96; BMI 25.7
[2024-09-18 11:04] VITALS: PULSE 102; RESP 24; O2SAT 96
[2024-09-18] MEDS: Albuterol Sulfate 5 MG, Albuterol/Iprat 2.5/0.5MG 3 ML 3 ML INHALE ×2 (11:09→15:18)
[2024-09-18 15:17] VITALS: PULSE 100; RESP 25; O2SAT 97
--- NOTE | 2024-09-18 17:53 | ED_ITS ---
HPI - General Adult General Chief complaint: Upper Respiratory Symptoms Stated complaint: [id number] Time Seen by Provider: 09/18/24 17:52 Source: patient Mode of arrival: ambulatory Limitations: no limitations History of Present Illness HPI narrative: This is a 39-year-old woman with a past medical history asthma presents for evaluation of dyspnea and cough. Patient reports she has been sick for the last 5 days. She states dry cough and no fevers. She reports using her albuterol inhaler and nebulizer. She states that she is using it every 3-4 hours. She states no chest pain or leg swelling. She states no abdominal pain or back pain. She states no GI or symptoms. Related Data Previous Rx's ?Medication ?Instructions ?Recorded albuterol sulfate 2.5 mg/3 mL 2.5 mg (3 mL) inhalation Q4H PRN 10/04/22 (0.083 %) solution for nebulization shortness of breath or wheezing #180 mL albuterol sulfate 90 mcg/actuation 2 puff inhalation Q4-6H PRN 10/04/22 aerosol inhaler shortness of breath #6.7 grams inhalational spacing device #1 ea 10/04/22 (Aerochamber Plus Z Stat spacer) prednisone 20 mg tablet 40 mg (2 x 20 mg) PO DAILY #14 tabs 10/04/22 albuterol sulfate 2.5 mg/3 mL 2.5 mg (3 mL) inhalation Q4-6H PRN 09/16/24 (0.083 %) solution for nebulization shortness of breath or wheezing #75 mL albuterol sulfate 90 mcg/actuation 2 puff inhalation Q4-6H PRN 09/16/24 aerosol inhaler shortness of breath or wheezing #8.5 grams prednisone 50 mg tablet 50 mg PO DAILY #4 tabs 09/16/24 Allergies Allergy/AdvReac Type Severity Reaction Status Date / Time No Known Allergies Allergy Verified 09/18/24 10:46 [No Known Allergies*] Review of Systems Review of Systems: ROS as per [facility] Past Medical History Medical History Asthma Social History Social History Advance Directives: No Advance Directives Information Provided: No Do you have a plan to hurt others: No Plan Physical Exam ED Vital Signs: Vital Signs - 24 hr 09/18/24 10:45 09/18/24 11:04 09/18/24 15:17 Temperature 97.1 F Pulse Rate 102 H 102 H 100 Respiratory Rate 24 H 24 H 25 H Blood Pressure 140/93 H Pulse Oximetry 96 Oxygen Delivery Method Room Air BMI result Body Mass Index 25.7 Gen: NAD, AOx3 HEENT: NCAT, EOMI, normal conjunctiva CV: RRR Pulm: CTAB, no increased work of breathing, excellent aeration to the bases, scattered expiratory wheezes GI: Soft, NTND, no rebound, guarding or rigidity Neuro: Grossly non focal Medications Administered Discontinued Medications Generic Name Dose Route Start Last Admin Trade Name Freq PRN Reason Stop Dose Admin Albuterol Sulfate 5 mg/ 0 mg 09/18/24 11:03 09/18/24 11:09 Albuterol/Ipratropium 3 ml INHALE 09/18/24 11:04 1 each ONCE ONE Administration Albuterol Sulfate 5 mg/ 0 mg 09/18/24 15:16 09/18/24 15:18 Albuterol/Ipratropium 3 ml INHALE 09/18/24 15:17 1 each ONCE ONE Administration Medical Decision Making Medical Decision Making MDM Narrative: Differential diagnosis includes, but is not limited to viral URI, asthma exacerbation, pneumonia, pneumothorax. Patient is afebrile and hemodynamically stable on room air. Exam is benign and reassuring. Patient was treated supportively with albuterol. She spaces well between treatments and has no respiratory distress or increased work of breathing. She has no hypoxia. Reviewed x-ray as below. On re-examination, patient is well-appearing and in no acute distress. I have counseled cessation on appropriate albuterol use and I have recommended she continue with her current course of prednisone. There is no indication for further emergent evaluation in this otherwise well-appearing patient as above. ?Patient is provided written and verbal instructions, educational materials, recommendations for outpatient follow-up, strict return precautions and teach back is performed. ?Patient states understanding and agreement with plan of care. ?Patient is discharged home in stable and improved condition. Admission/Observation Consideration of admission/observation: Escalation of care including admission/observation considered Independent Interpretation I performed an independent interpretation of an: Plain X-Ray Interpretation: I independently reviewed and interpreted the patient's chest x-ray, which demonstrates no focal consolidation, pleural effusion or pneumothorax Radiology Impression Discussion of test interpretation with radiology: I have reviewed the radiologist's reading. Radiologist Impression: XR/XR chest 2V IMPRESSION: No acute airspace disease. Electronically signed by: Virgilio Rodrigues MD 09/18/2024 12:02 PM EST Dictated By: Virgilio Lawrence MD Signed By: <Electronically signed by Virgilio Ballard MD in OV> 09/18/24 1202 Discharge Plan Discharge Clinical Impression: Asthma Patient Disposition: Home, Self-Care Instructions: Asthma (ED) Additional Instructions: You were seen and evaluated in the emergency room. Your vital signs were reassuring. Your chest x-ray was normal and did not show any evidence of pneumonia. Please continue your prednisone as previously prescribed. Please continue taking 4 puffs of albuterol inhaler or 1 nebulized albuterol treatment every 4 hours as needed for difficulty breathing or wheezing. Please follow-up with your primary care doctor in the next 1 week. Return to the emergency room with any new or worsening symptoms. Prescriptions: No Action albuterol sulfate 90 mcg/actuation HFA aerosol inhaler 2 puff inhalation Q4-6H PRN (Reason: shortness of breath) Qty: 6.7 0RF albuterol sulfate 2.5 mg /3 mL (0.083 %) solution for nebulization 2.5 mg inhalation Q4H PRN (Reason: shortness of breath or wheezing) Qty: 180 0RF prednisone 20 mg tablet 40 mg PO DAILY Qty: 14 0RF (DME) Aerochamber Plus Z Stat Spacer See Rx Instructions .Route Qty: 1 0RF Rx Instructions: As directed albuterol sulfate 90 mcg/actuation HFA aerosol inhaler 2 puff inhalation Q4-6H PRN (Reason: shortness of breath or wheezing) Qty: 8. 5 1RF albuterol sulfate 2.5 mg /3 mL (0.083 %) solution for nebulization 2.5 mg inhalation Q4-6H PRN (Reason: shortness of breath or wheezing) Qty: 75 0RF prednisone 50 mg tablet 50 mg PO DAILY Qty: 4 0RF Print Language: [place]
[2024-09-18 18:00] VITALS: BP 126/82; PULSE 95; RESP 18; TEMP 36.8; O2SAT 97
--- NOTE | 2024-09-18 18:10 | PC.NURSE ---
patient a&ox3, lungs in/ex wheezing throughout, pt previously had cxr performed, updrafts given by RT while pt was waiting in WR, vitals currently stable
--- NOTE | 2024-09-18 18:45 | PC.NURSE ---
patient a&ox3, continues to have in/ex wheezing throughout, vss, this nurse performed a walking ambulation trial- pts O2 sat stayed at 95-96%, this nurse also gave a patient an IS to take home- education was performed on how to use the IS and how often. Pt to discharge home to continue home nebs and steroids as previously ordered.
[2024-09-18 18:46] VITALS: BP 121/84; PULSE 94; RESP 20; TEMP 36.7; O2SAT 95
== END 2024-09-18 18:47 | disposition home or self-care (01) ==
PROVIDERS: Emergency Provider Emergency Medicine
DX: J45.909 Unspecified asthma, uncomplicated (principal); R06.02 Shortness of breath; Z79.899 Other long term (current) drug therapy
CPT/HCPCS: 71046; 93005; 94640; 99284

== ENCOUNTER → 2024-09-18 10:36 | Outpatient (BNV) | payer OTHER, SELFPAY | PROVIDERS: Visit Provider Internal Medicine Cardiovascular Disease | DX: R07.9 Chest pain, unspecified (principal) | CPT/HCPCS: 93010 ==

== ENCOUNTER → 2024-09-18 10:48 | Outpatient (BNV) | payer OTHER, SELFPAY | PROVIDERS: Visit Provider Radiology Diagnostic Radiology | DX: R06.02 Shortness of breath (principal) | CPT/HCPCS: 71046 ==

== ENCOUNTER 2025-04-15 13:23 | Outpatient (AMB) | payer OTHER, SELFPAY ==
--- NOTE | 2025-04-15 13:29 | A.OFFVIS_ITS ---
Vital Signs 04/15/25 13:42 Height 5 ft 4 in Weight 146 lb BMI 25.1 BP 118/80 Intake Visit Reasons: New patient annual Intake Note: Per patient last pap smear was 20+ years ago, normal hx. Had an ablasion approx. 16 years ago due to heavy menses and has not had a menstrual cycle since. 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 History of tubal ligation and ablation no cycles since approximately 16 years ago. Currently is sexually active, long-term partner. She denies vaginal itching or irritation. STI screening offered; she declines. She tries to eat healthy and stays active with exercise. Denies family history of ovarian or colon cancer. Family history of breast cancer. Last pap smear 20+ years ago, negative. Mammogram: never, plans to see PCP and her them order tomorrow. [facility] Medical History Nicotine dependence Hypertension Alcohol abuse Hypothyroidism Asthma Surgical History H/O tubal ligation History of endometrial ablation Family History Maternal Aunt Breast cancer Social History Household Members: Spouse Current occupational status: unemployed Female Reproductive History Menstrual Age of Menarche: 12 control method: none Total pregnancies: 1 Full term: 1 Number of Living Children: 1 Review of Systems Const All systems reviewed & are unremarkable except as noted in HPI and below Reports as per HPI Eyes Reports no additional complaints ENT Reports no additional complaints Card Reports no additional complaints Resp Reports no additional complaints GI Reports as per HPI and Reports no additional complaints Reports as per HPI Musc Reports no additional complaints Skin/Breast Reports as per HPI Neuro Reports no additional complaints Psych Reports no additional complaints Endo Reports no additional complaints Lan/Lymph Reports no additional complaints Aller/Immun Reports no additional complaints Physical Exam Vital Signs: Last Vital Signs BP 118/80 06/03/25 13:42 BMI result Body Mass Index 25.1 Const General: cooperative, healthy appearing, no acute distress, well developed and alert Orientation/consciousness: patient oriented x3 HEENT Head: Yes normal to inspection Eyes General: appearance normal, both eyes and all related structures Neck Neck: Yes normal visual inspection Thyroid: Thyroid normal Chest Chest palpation & inspection: normal inspection of the chest and other (no puckering, dimpling, peau de orange, retraction, discharge, masses) Breast/axilla inspection: normal inspection of the breasts Breast/axilla palpation: normal palpation of the breasts Resp Effort & Inspection: normal respiratory effort GI Inspection: Yes normal to inspection Palpation (GI): Soft to palpation Rectal Exam - Female: deferred General: Yes bladder normal to palpation External Female Exam: normal external appearance and normal appearance of the urethra Speculum Exam - Vagina: normal appearance of the vagina, normal palpation and normal vaginal discharge Speculum Exam - Cervix: normal appearance of the cervix and normal palpation Bimanual exam- vagina & uterus: normal bimanual exam, normal palpation, uterine size normal, bladder normal to palpation, normal palpation and non-tender Bimanual Exam- Adnexa, other: no masses Skin General skin exam: no rashes or lesions noted Rashes: no rashes Neuro General: patient oriented x3 Cognition (Neuro): normal cognition Extrem General: Yes normal to inspection Psych Attitude: cooperative Thought process: Normal thought process present Assessment & Plan Assessment & Plan (1) Encounter for well woman exam with routine gynecological exam: Code(s): Z01.419 - Encounter for gynecological examination (general) (routine) without abnormal findings Category: Medical Plan Discussed: Current recommendations for pap smears per ASCCP guidelines. Breast awareness and periodic breast exams. Mammogram yearly. Primary care to oder per pt., has a appointment tomorrow. Maintain a healthy lifestyle including a well balanced diet and routine exercise. Colonoscopy >45, or at risk sooner. Patient verbalizes understanding and agrees to the plan of care. She was given opportunity to ask questions and all questions were answered to the best of my ability. RTO in one year for annual gallery intern examination. This note is constructed using voice recognition software. While every effort has been made to ensure accuracy, principal systems engineer errors may have been included. Orders: Orders Pap Smear 04/15/25 Z01.419 - Encounter for gynecological examination (general) (routine) without abnormal findings HPV High risk Today Z01.419 - Encounter for gynecological examination (general) (routine) without abnormal findings Medications: Discontinued albuterol sulfate 90 mcg/actuation Discontinued Reason: Patient Completed Course 2 puffs inhalation Q4-6H PRN 8.5 grams 1RF shortness of breath or wheezing albuterol sulfate Discontinued Reason: Patient Completed Course 2.5 mg (3 mL) inhalation Q4-6H PRN 75 mL 0RF shortness of breath or wheezing Coding Level of Care Code New Pt Prev Care 40-64y(85202) Diagnoses Encounter for well woman exam with routine gynecological exam Z01.419
[2025-04-15 13:42] VITALS: BP 118/80; BMI 25.1
== END 2025-04-15 14:09 | disposition home or self-care (01) ==
LOC: HO.HWS 13:24
PROVIDERS: Visit Provider Advanced Practice Midwife
DX: Z01.419 Encounter for gynecological examination (general) (routine) without abnormal findings (principal)
CPT/HCPCS: 99386; 99459

== ENCOUNTER 2025-04-15 13:23 | Outpatient (REF) | payer OTHER, SELFPAY ==
[2025-04-21 13:19] LABS: HPV Genotype 16 Negative (Negative); HPV Genotype 18 Negative (Negative); HPV High Risk Negative (Negative)
== END 2025-04-15 13:24 | disposition home or self-care (01) ==
LOC: HO.LNP 13:23
PROVIDERS: Visit Provider Advanced Practice Midwife
DX: Z01.419 Encounter for gynecological examination (general) (routine) without abnormal findings (principal)
CPT/HCPCS: 87626; 88175; 99386; 99459